=== PATIENT | female | born 1975 | race Two or more races ===

== ENCOUNTER → 2017-11-05 | Outpatient (CLI) | payer OTHER | LOC: CIMAGING 10:17 | PROVIDERS: ATTEND Family Medicine | DX: Z12.31 Encounter for screening mammogram for malignant neoplasm of breast (principal); E28.2 Polycystic ovarian syndrome; N88.8 Other specified noninflammatory disorders of cervix uteri | CPT/HCPCS: 76856-PO ==

== ENCOUNTER → 2017-11-27 | Outpatient (CLI) | payer OTHER | LOC: CIMAGING 13:05 | PROVIDERS: ATTEND Family Medicine | DX: R92.8 Other abnormal and inconclusive findings on diagnostic imaging of breast (principal) ==